=== PATIENT | female | born 1945 | race Caucasian/White ===

== ENCOUNTER → 2023-06-22 15:18 | Outpatient (REF) | payer BC, MEDICARE, SELFPAY ==
[2023-06-22 16:27] LABS: % Basophils 0.5 % (0-2); % Eosinophils 2.4 % (0-6); % Immature Granulocytes 0.2 % (0-0.5); % Monocytes 8.2 % (1.7-9.3); % Neutrophils 73.7 % (42.2-75.2); Absolute Eosinophils 0.1 10^3/uL (0-0.7); Absolute Lymphocytes 0.9 10^3/uL (1.2-3.4); Absolute Monocytes 0.5 10^3/uL (0.1-0.6); Absolute Neutrophils 4.3 10^3/uL (1.4-6.5); Hematocrit 31.8 % (37.0-47.0); Hemoglobin 9.6 g/dL (12.0-16.0); Mean Corp Hgb Conc. 30.2 g/dL (33.0-37.0); Mean Corpuscular Hgb 24.9 pg (27.0-31.0); Mean Corpuscular Volume 82.6 fL (81.0-99.0); Mean Platelet Volume 10.3 fL (7.4-10.4); Nucleated Red Blood Cells % 0 %; Platelet Count 266 10^3/uL (130-400); Red Blood Cell Count 3.85 10^6/uL (4.20-5.40); Red Cell Dist. Width 17.5 % (11.5-14.5); White Blood Cell Count 5.9 10^3/uL (4.8-10.8)
[2023-06-22 16:54] LABS: ALT (SGPT) 18 U/L (0-35); AST (SGOT) 32 U/L (14-36); Albumin 4.1 g/dl (3.5-5.0); Alkaline Phosphatase 106 U/L (38-126); Blood Urea Nitrogen 16 mg/dl (7-17); Calcium 9.5 mg/dl (8.4-10.2); Carbon Dioxide 23 mmol/L (22-30); Chloride 102 mmol/L (98-107); Glucose 105 mg/dl (70-99); Potassium 4.3 mmol/L (3.5-5.1); Sodium 137 mmol/L (135-145); Total Bilirubin 0.6 mg/dl (0.2-1.3); Total Protein 6.4 g/dl (6.3-8.2); eGFR > 60.00
[2023-06-22 17:14] LABS: CEA 0.87 ng/ml
== END ==
LOC: REG 15:18
PROVIDERS: ATTENDING PHYSICIAN Internal Medicine Medical Oncology; FAMILY PHYSICIAN Family Medicine
DX: C20 Malignant neoplasm of rectum (principal); C78.7 Secondary malignant neoplasm of liver and intrahepatic bile duct
CPT/HCPCS: 36415; 80053; 82378; 85025

== ENCOUNTER → 2023-06-27 15:00 | Outpatient (REF) | payer BC, MEDICARE, SELFPAY | LOC: RAD 15:00 | PROVIDERS: ATTENDING PHYSICIAN Internal Medicine Medical Oncology; FAMILY PHYSICIAN Family Medicine | DX: C78.7 Secondary malignant neoplasm of liver and intrahepatic bile duct (principal) | CPT/HCPCS: 71260; Q9967 ==

== ENCOUNTER → 2023-12-06 14:07 | Outpatient (REF) | payer BC, MEDICARE, SELFPAY | LOC: RCS 14:07 | PROVIDERS: ATTENDING PHYSICIAN Internal Medicine; FAMILY PHYSICIAN Family Medicine | DX: I20.1 Angina pectoris with documented spasm (principal); I44.4 Left anterior fascicular block; I10 Essential (primary) hypertension | CPT/HCPCS: 93306; 93356 ==

== ENCOUNTER → 2023-12-06 15:22 | Outpatient (REF) | payer BC, MEDICARE, SELFPAY ==
[2023-12-06 16:44] LABS: ALT (SGPT) 28 U/L (0-35); AST (SGOT) 38 U/L (14-36); Albumin 4.4 g/dl (3.5-5.0); Alkaline Phosphatase 92 U/L (38-126); Blood Urea Nitrogen 16 mg/dl (7-17); Calcium 9.6 mg/dl (8.4-10.2); Carbon Dioxide 23 mmol/L (22-30); Chloride 104 mmol/L (98-107); Glucose 95 mg/dl (70-99); HDL Cholesterol 71 mg/dl; LDL Cholesterol, Calculated 114 mg/dl; Potassium 4.6 mmol/L (3.5-5.1); Sodium 141 mmol/L (135-145); Total Bilirubin 0.7 mg/dl (0.2-1.3); Total Cholesterol 219 mg/dl (50-199); Total Protein 6.5 g/dl (6.3-8.2); Triglyceride 173 mg/dl (10-149); Very Low Density Lipoprotein 34 mg/dl (0-30); eGFR > 60.00
[2023-12-07 08:21] LABS: Glycohemoglobin (HgbA1c) 5.7 % (4.0-5.6)
== END ==
LOC: REG 15:22
PROVIDERS: ATTENDING PHYSICIAN Internal Medicine; FAMILY PHYSICIAN Family Medicine
DX: R73.03 Prediabetes (principal); C20 Malignant neoplasm of rectum; I10 Essential (primary) hypertension; E78.00 Pure hypercholesterolemia, unspecified
CPT/HCPCS: 36415; 80053; 80061; 83036

== ENCOUNTER → 2024-01-12 16:11 | Outpatient (REF) | payer BC, MEDICARE, SELFPAY ==
[2024-01-12 18:52] LABS: % Basophils 0.6 % (0-2); % Eosinophils 0.6 % (0-6); % Immature Granulocytes 0.6 % (0-0.5); % Lymphocytes 25.7 % (20.5-51.1); % Monocytes 10.6 % (1.7-9.3); % Neutrophils 61.9 % (42.2-75.2); Absolute Lymphocytes 0.5 10^3/uL (1.2-3.4); Absolute Monocytes 0.2 10^3/uL (0.1-0.6); Absolute Neutrophils 1.1 10^3/uL (1.4-6.5); Hematocrit 29.8 % (37.0-47.0); Hemoglobin 9.8 g/dL (12.0-16.0); Mean Corpuscular Volume 103.1 fL (81.0-99.0); Mean Platelet Volume 11.7 fL (7.4-10.4); Nucleated Red Blood Cells % 0 %; Platelet Count 138 10^3/uL (130-400); Red Blood Cell Count 2.88 10^6/uL (4.20-5.40); Red Cell Dist. Width 17.5 % (11.5-14.5); White Blood Cell Count 1.8 10^3/uL (4.8-10.8)
== END ==
LOC: REG 16:11
PROVIDERS: ATTENDING PHYSICIAN Internal Medicine Medical Oncology; FAMILY PHYSICIAN Family Medicine
DX: C20 Malignant neoplasm of rectum (principal); C78.7 Secondary malignant neoplasm of liver and intrahepatic bile duct
CPT/HCPCS: 36415; 85025

== ENCOUNTER 2024-03-13 06:18 | Day surgery (SDC) | payer BC, MEDICARE, SELFPAY ==
[2024-03-13 10:02] LABS: Glucose - Point of Care 109 mg/dl (70-99)
== END 2024-03-13 11:20 | disposition home or self-care (01) ==
LOC: GI 06:18
PROVIDERS: ATTENDING PHYSICIAN Surgery
DX: Z12.11 Encounter for screening for malignant neoplasm of colon (principal); K57.30 Diverticulosis of large intestine without perforation or abscess without bleeding; Z85.048 Personal history of other malignant neoplasm of rectum, rectosigmoid junction, and anus
CPT/HCPCS: G0105; 82962

== ENCOUNTER → 2025-02-28 15:14 | Outpatient (REF) | payer BC, MEDICARE, SELFPAY ==
[2025-02-28 16:29] LABS: Blood Urea Nitrogen 16 mg/dl (7-17); Calcium 9.5 mg/dl (8.4-10.2); Carbon Dioxide 27 mmol/L (22-30); Chloride 106 mmol/L (98-107); Glucose 114 mg/dl (70-99); Potassium 4.1 mmol/L (3.5-5.1); Sodium 138 mmol/L (135-145); eGFR > 60.00
== END ==
LOC: REG 15:14
PROVIDERS: ATTENDING PHYSICIAN Internal Medicine; FAMILY PHYSICIAN Internal Medicine Medical Oncology
DX: I10 Essential (primary) hypertension (principal)
CPT/HCPCS: 36415; 80048